=== PATIENT | female | born 1945 | race Caucasian/White ===

== ENCOUNTER → 2017-01-22 | Outpatient (CLI) | payer MEDICARE, BC ==
[~2017-01-22] MED LIST: ALLEGRA PO; AZO CRANBERRY250 MG PO; AZO STANDARD97.5 MG PO; CALCIUM + D 6001 TA1 PO; CALCIUM 600 + D1 TAB PO; CALCIUM 600 +1 EAC1 PO; COMPLETE SENIOR VITA PO; ERY-TAB500 MG PO; FISH OIL 1,2001 CAP PO; FLEXTRA CAPSULE1 CAP PO; FLONASE 0.05% N16 G1; FLONASE 0.05% N16 GM; HYDROCHLOROTHIA25 MG PO; LIPITOR PO; LIPITOR40 MG PO; LISINOPRIL PO; NEXIUM PO; OMEPRAZOLE40 M1 PO; PRINIVIL40 MG PO; SENIOR TABS1 EACH PO; SUPER B COMPLEX1 CAP PO; TYLOX1 CAP 5/50 PO; ZESTRIL40 MG PO; ZYRTEC10 M2 PO
--- NOTE | ~2017-01-22 | CR173 ---
[facility] A Service of [facility] & [facility] / [facility] RADIOLOGY TEXT RESULTS PATIENT: UZMA ISABEL LOCATION: [facility] : 49 UNIT #: [id number] AGE: [address]: Mary Jane Briones MD SEX: F ORDER DR: [id number] [facility] [address] [place] [place], [place] [address] [id number] O MR#: [id number] Acc #: [id number] NAME: UZMA ISABEL : 1945 SEX: F STUDY DATE/TIME: 01/22/2017 10:31 UNIT: [facility] ROOM: STUDY DESCRIPTION: CR Knee 3 Views Rt Attending Physician: Mary Jane Briones M.D. Referring Physician: Mary Jane Briones M.D. Ordering Physician: Mary Jane Briones M.D. Primary Care Physician: Mary Jane Briones M.D. MEDICAL IMAGING REPORT This report is preliminary unless electronic signature is present EXAM Right knee, 01/22/2017. HISTORY 71-year-old female with posterior right knee pain and popping for 2 months. COMPARISON None. FINDINGS Three views of the right knee demonstrate no acute fracture or dislocation. No joint effusion. There are advanced tricompartmental degenerative changes. Chondrocalcinosis noted. Soft tissues are unremarkable. IMPRESSION Advanced tricompartmental arthrosis. No evidence of acute fracture or dislocation. Dictated by... Ivan Chun M.D. THIS IS AN ELECTRONICALLY VERIFIED REPORT Ivan Chun M.D. at 01/23/2017 8:33 AM ROQUE/felix TD: 01/22/2017 23:59 JOB #: [id number] MEDICAL IMAGING REPORT Page 1 of 1 COPY
== END | disposition home or self-care (01) ==
LOC: CRAD 10:19
DX: M17.11 Unilateral primary osteoarthritis, right knee (principal)
CPT/HCPCS: 73562